=== PATIENT | female | born 1985 | race Caucasian/White ===

== ENCOUNTER 2016-07-28 09:15 | Inpatient (IN) | payer OTHER ==
--- NOTE | ~2016-07-28 | DS ---
Discharge Summary [facility] [address] [place]. [address] NAME: LING DENT : 85 STATUS : DIS IN PAT#: [id number] AGE: 30 ADM/REG DATE : 07/28/16 MR#: [id number] REPORT SERV DATE: 08/12/16 DICTATED BY: DAVID BROWNE DATE: 08/12/16 REPORT STATUS : Draft TRANSCRIBED BY: CHRISTEL DATE: 08/12/16 Data Collection from hospitalization DISCHARGE DIAGNOSES: 1. Perforated ulcer. 2. History of gastric bypass for super morbid obesity. CONSULTATIONS: None. PROCEDURES: 1. Laparoscopic Michele patch, laparoscopic cholecystectomy on 07/28/2016. 2. CT scan of the abdomen and pelvis with contrast on 07/28/2016. 3. Feeding tube placement on 07/29/2016. 4. Water-soluble contrast swallow study on 08/02/2016. PATHOLOGY: Gallbladder cholecystectomy-cholelithiasis, minimal histologic changes, see description. DISCHARGE MEDICATIONS: Prilosec 40 mg daily, Percocet one tablet every four hours as needed. CONDITION AT DISCHARGE: Stable. DISPOSITION: The patient was discharged home on a regular diet with activities as instructed. She would follow up with Dr. David Browne on 08/04/2016. She would follow up with Dr. Vasquez Chen, in three to four weeks following discharge. She would follow up with Dr. Katheryn Hale, on 08/24/2016. HOSPITAL COURSE: This is a 30-year-old female, who has a significant past medical history of gastric bypass in 2015, and marginal ulcers, diagnosed in 2016, with ongoing epigastric indigestion like pain consistent with ulcer disease. Two weeks prior to this admission, she had an endoscopy by Dr. Hale and ulcers were again noted. A staple that was found was removed at that time. The patient had been in her normal state of health and on the morning of this admission, she had the acute onset of abdominal pain. It was sharp, stabbing, and unrelenting nothing made it better. Movement and palpation made it worse. She was brought to the emergency department. She said she had never had anything like this before. Her bowel habits had been normal. She had noticed no bright red blood per rectum. She was admitted to the hospital at this time for further evaluation and treatment. Upon admission, a CT scan showed free air and free fluid in the pelvis. She was felt to have perforated gastric ulcer most likely one of the marginal ulcers, and felt that the patient would need to be taken to the operating room for laparoscopic repair, and possible open repair, and any other indicated procedures. She agreed to proceed and was taken to the operating room where she underwent the above-mentioned procedure. She tolerated this well and there were no complications. On postop day #1, her pain was controlled. She was being held n.p.o. We encouraged her to ambulate. White count 14.4. Nasogastric tube was placed under fluoroscopic guidance on 07/30/2016. She was able to void. Plans were being made for an upper GI to be performed. We encouraged her to use incentive spirometry and mobilize. Pain control had slightly improved. Discharge Summary [place] [id number] [facility] [place]. [address] NAME: ILNG DENT : 85 STATUS : DIS IN PAT#: [id number] AGE: 30 ADM/REG DATE : 07/28/16 MR#: [id number] REPORT SERV DATE: 08/12/16 DICTATED BY: DAVID BROWNE DATE: 08/12/16 REPORT STATUS : Draft TRANSCRIBED BY: CHRISTEL DATE: 08/12/16 On 08/01/2016, she reported that her abdominal pain was controlled and had improved. She said the pain was in the left upper quadrant site. Pain was significantly indurated there. Upper GI was going to be performed. The next day, an upper GI was performed. She had no new complaints. She did have multiple bowel movements after the upper GI. The upper GI showed no extravasation. She was going to be placed on a regular diet. The following day, she was tolerating full liquids. Discharge planning was performed. On 08/03/2016, she was tolerating clear liquids. Her abdomen was soft and nontender. Her IV was discontinued. We advanced her diet. Discharge instructions were given. Due to her improved and stable condition, she was discharged home with the above-stated instructions. Information collected by: Mary Sun I submit the above information as my discharge summary. LINWOOD/CHRISTEL Zahra Browne M.D. / [id number] CC: Carolyn Vegas M.D.
--- NOTE | ~2016-07-28 | OP ---
Record Of [facility] [address] [place]. [address] NAME: LING DENT : 85 STATUS : ADM IN [facility]#: [id number] AGE: 30 ADM/REG DATE : 07/28/16 MR#: [id number] REPORT SERV DATE: 07/30/16 DICTATED BY: DAVID BROWNE DATE: 07/29/16 REPORT STATUS : Draft TRANSCRIBED BY: MODL DATE: 07/29/16 DATE OF PROCEDURE: 07/28/2016 PREOPERATIVE DIAGNOSES: 1. Perforated viscus. 2. Biliary dyskinesia. POSTOPERATIVE DIAGNOSES: 1. Perforated viscus (perforated ulcer at gastrojejunostomy). 2. Biliary dyskinesia. PROCEDURE: 1. Laparoscopic Michele patch. 2. Laparoscopic cholecystectomy. ATTENDING SURGEON: David Browne M.D. RESIDENT: . ANESTHESIA: General. ESTIMATED BLOOD LOSS: 10 mL. IV FLUIDS: 850 mL crystalloid. SPECIMEN: Gallbladder. DRAINS: A 19-round Alexander drain placed infrahepatically under the left and right lobe. COMPLICATIONS: None. FINDINGS: The patient had copious amounts of turbid gastric fluid in the abdominal cavity with a perforation noted at the gastrojejunostomy anastomosis on the jejunal side, it appeared to be. The patient had a very healthy, good tongue of omentum that could be swung up to cover and patch the hole. The gallbladder was grossly distended consistent with biliary dyskinesia. INDICATIONS FOR PROCEDURE: This is a 30-year-old female who has a significant past medical history and surgical history of gastric bypass in 2014, and then noted to have marginal ulcers in 2016 and then just recently 2 weeks ago, has had an endoscopy and was still noted to have 2 ulcers near her gastrojejunostomy, and at that time, per the patient's report, there was a staple that was also visualized poking through that was removed. The patient did have an acute onset of abdominal pain on the morning of 07/28/2016, then developed arya peritonitis. The patient presented to the ER. Workup was consistent with perforated viscus with free air and free fluid in the pelvis. Also of note, the patient has had some considerable issues with oral intake, and a workup had been done as an outpatient for that, Record Of [place] [id number] [place]. [address] NAME: LING DENT : 85 STATUS : ADM IN PAT#: [id number] AGE: 30 ADM/REG DATE : 07/28/16 MR#: [id number] REPORT SERV DATE: 07/30/16 DICTATED BY: DAVID BROWNE DATE: 07/29/16 REPORT STATUS : Draft TRANSCRIBED BY: MODAbeba DATE: 07/29/16 and the patient was noted to have biliary dyskinesia based on HIDA scan with an ejection fraction of 12%. Therefore, the above procedures were offered to the patient. Risks, benefits, and alternatives were explained to the patient. The patient expressed clear verbal understanding and wished to proceed forward with this procedure. DESCRIPTION OF PROCEDURE: After informed consent was obtained, the patient was taken back to the operative theater. The patient was laid on the operating room table in supine position. The patient was given adequate analgesia and anesthesia and successfully endotracheally intubated. The patient was then placed in lithotomy position. Surgery site was then prepped and draped in the standard fashion. A formal time-out was then performed. Appropriate preoperative antibiotics had been administered. All present in the operating room were in agreement and elected to proceed forward with the procedure. We began by making incision through the umbilicus using blunt dissection, engaged the abdominal cavity. A 12 mm trocar was then placed into the abdominal cavity, connected to insufflation. Pneumoperitoneum 50 mmHg was achieved, and the patient tolerated this well. A laparoscope was then introduced into the abdominal cavity. A quick surveillance revealed copious amounts of turbid fluid throughout the abdomen and a grossly distended gallbladder. We then placed three 5 mm trocars, 1 in the mid epigastrium and then 2 in the right upper quadrant. We then also placed another 10 mm trocar in the left upper quadrant. We then suctioned out all the turbid fluid, rotated the patient Trendelenburg, reverse Trendelenburg, left, and right to get as much turbid fluid out as possible. We then thoroughly irrigated out the abdominal cavity until a clear fluid returned. We then turned our attention to where we expected the perforated viscus to be and noted there to be a perforation right at the gastrojejunostomy of the Ricky-en-Y bypass distal, more in the jejunal side, easily able to locate a good healthy tongue of omentum. This was brought up and laid tension-free over the perforation. We then intracorporeally placed three 0 silk sutures on the , placed the tongue of omentum over the hole, and then tied down our sutures to complete our Michele patch and to patch the perforation closed. We then turned our attention to the gallbladder. It was grasped by the fundus, retracted cephalad. We then circumferentially dissected out the cystic duct and cystic artery with a mixture of blunt and electrocautery dissection. Once critical view, the cystic duct, gallbladder, infundibulum junction were visualized as well as the cystic artery with circumferential view was seen around it with the liver plate seen behind it. We then placed two clips on the stay side and 1 clip on the go side on the cystic duct and the cystic artery. We then sharply transected between these clips, then used electrocautery to remove the gallbladder from the liver bed. Gallbladder was grasped with a [id number] clamp and removed through the umbilical trocar site, passed off the surgical field. We then visualized our gallbladder fossa. Hemostasis was achieved. There was no bile leakage noted. We then once again thoroughly irrigated out the abdominal cavity until a clear fluid returned. We then placed a 19-round Alexander drain infrahepatically, laid next to omental Michele patch, coursed the drain infrahepatically so it also would lay next to the gallbladder fossa, and brought out through the most lateral right upper quadrant trocar site. I sutured this in place with 2-0 nylon stitch. We then removed our trocars under direct laparoscopic vision. No bleeding noted from the anterior abdominal wall. With the laparoscope still in place, we used a suture passer with a 0 Vicryl in a simple interrupted fashion to reapproximate the fascia at the 10 mm trocar site in the left upper quadrant. We then removed the laparoscope and adequately desufflated the patient's abdomen through the Record Of Operation [place] [address] [place] [id number] NAME: LING DENT : 85 STATUS : ADM IN PAT#: [id number] AGE: 30 ADM/REG DATE : 07/28/16 MR#: [id number] REPORT SERV DATE: 07/30/16 DICTATED BY: DAVID BROWNE DATE: 07/29/16 REPORT STATUS : Draft TRANSCRIBED BY: CHRISTEL DATE: 07/29/16 final trocar at the umbilical site. Removed this trocar. We then reapproximated the fascia at our umbilical trocar site with 0 Vicryl and a UR-6 in a [id number] fashion. Fascia was reapproximated very well. We then reapproximated our skin incision sites with 4-0 Monocryl in a simple interrupted subcuticular stitch fashion. The skin was reapproximated very well, and hemostasis noted to have been achieved. Sterile dressings were then applied. Sterile drapes were then broken down. The patient was reversed from anesthesia. The patient was successfully extubated in the operating room. The patient was awakened, bowel sounds were stable, and patient was transferred to recovery room in stable condition. LAMBERT/CHRISTEL Zahra Browne M.D. / [id number]
--- NOTE | ~2016-07-28 | HP ---
History And Physical [place] [id number] [facility] [place]. [address] NAME: LING DENT : 85 STATUS : ADM IN [facility]#: [id number] AGE: 30 ADM/REG DATE : 07/28/16 MR#: [id number] REPORT SERV DATE: 07/28/16 DICTATED BY: DAVID BROWNE DATE: 07/28/16 REPORT STATUS : Draft TRANSCRIBED BY: CHRISTEL DATE: 07/28/16 DATE OF ADMISSION: 07/28/2016 CHIEF COMPLAINT: Abdominal pain. HISTORY OF PRESENT ILLNESS: This is a 30-year-old female with significant past medical history of a gastric bypass in 2015 and marginal ulcers diagnosed in 2016 with continued ongoing epigastric indigestion-like pain consistent with ulcer disease, who recently two weeks ago had an endoscopy by Dr. Hale and ulcers were noted again. A staple that was noted was removed at that time. The patient was in normal state of health, and this morning, she had acute onset of abdominal pain that was sharp, stabbing, unrelenting, nothing makes it better, movement and palpation make it worse. The patient was brought to the emergency department. The patient states she has never had anything like this before. Denies any fever, chills, nausea, or vomiting. Her bowel habits have been normal. She has noted no bright red blood per rectum. No melena, no dysuria, no hematuria. REVIEW OF SYSTEMS: 12-system review negative except as mentioned in the HPI. ALLERGIES: NO KNOWN DRUG ALLERGIES. PAST MEDICAL HISTORY: Ulcer disease, remote history of super morbid obesity weighing 317 and now down to 163, and also having a recent diagnosis of biliary dyskinesia based on HIDA scan, 12% ejection fraction. PAST SURGICAL HISTORY: As above. SOCIAL HISTORY: No tobacco, alcohol, or drugs. He is from [place]. FAMILY HISTORY: Noncontributory. MEDICATIONS: Omeprazole 40 mg. PHYSICAL EXAMINATION: VITAL SIGNS: Temperature 98.7, blood pressure 152/83, pulse of 80, respiratory rate 18, O2 saturation 99% on room air. GENERAL: In pain, distress. HEENT: Normocephalic, atraumatic. PERRL. EOMI. Mucous membranes are moist. NECK: No lymphadenopathy. Trachea midline. CARDIOVASCULAR: Regular rate and rhythm. LUNGS: Clear to auscultation bilaterally. ABDOMEN: Rigid, distended, and tender to palpation in four quadrants. Positive peritonitis. Positive rebound. Positive guarding. EXTREMITIES: No clubbing, cyanosis, or edema. 2+ pulses. MUSCULOSKELETAL: Moves all extremities well. NEUROLOGIC: Cranial nerves II through XII are intact. A/O x3. History And Physical [address] [place]. [address] NAME: LING DENT : 85 STATUS : ADM IN PAT#: [id number] AGE: 30 ADM/REG DATE : 07/28/16 MR#: [id number] REPORT SERV DATE: 07/28/16 DICTATED BY: DAVID BROWNE DATE: 07/28/16 REPORT STATUS : Draft TRANSCRIBED BY: CHRISTEL DATE: 07/28/16 LABORATORY DATA: White count 8.5, hematocrit 40.8, platelets 255. Sodium 142, potassium 4.0, chloride 108, bicarb 27, BUN 12, creatinine 0.68, glucose 89. LFTs are normal. IMAGING: CT scan shows free air and free fluid in the pelvis. ASSESSMENT AND PLAN: This is a 30-year-old female with acute onset of abdominal pain, positive peritonitis, free air consistent with perforated gastric ulcer, most likely one of her marginal ulcers. We will take the patient back to the operating room for laparoscopic repair, possible open, and any other indicated procedures. The risks, benefits, and alternatives of the procedure were explained to the patient. Risks include, but not limited to, pain, bleeding, infection, failure of the operation, need for future operations, injury to surrounding structures, recurrent disease, [place], stroke, failure to wean from the ventilator, DVT, PE, and . The patient and family all expressed clear verbal understanding and wished to proceed forward with this emergent procedure. LAMBERT/CHRISTEL Zahra Browne M.D. / [id number] CC: Zahra Browne M.D.
[2016-07-28 10:20] LABS: BASOPHILS 0.1 %; BASOPHILS ABSOLUTE 0.01 10/3/uL (0.0-0.16); EOSINOPHILS 0.6 %; EOSINOPHILS ABSOLUTE 0.05 10/3/uL (0.0-0.53); ER CBC TAT 0 Hrs 09 Mins; HEMATOCRIT 40.8 % (36.0-48.0); HEMOGLOBIN 13.6 g/dL (12.0-16.0); IMMATURE GRANULOCYTES 0.2 %; LYMPHOCYTES 21.1 %; LYMPHOCYTES ABSOLUTE 1.79 10/3/uL (0.67-4.30); MEAN CORPUS HGB CONC 33.3 g/dL (32.0-36.0); MEAN CORPUSCULAR HEMOGLOB 28.4 pg (26.0-34.0); MEAN CORPUSCULAR VOLUME 85.2 fL (80-100); MONOCYTES 3.8 %; MONOCYTES ABSOLUTE 0.32 10/3/uL (0.21-1.20); NEUTROPHILS 74.2 %; PLATELET COUNT 255 10/3/uL (150-400); RED CELL COUNT 4.79 10/6/uL (4.0-5.6); WHITE BLOOD CELLS 8.5 10/3/uL (4.5-10.5)
[2016-07-28 10:22] LABS: IMMATURE GRANULOCYTES ABSOLUTE 0.02 10/3/uL (0.0-0.11); MANUAL DIFF NO %
[2016-07-28 10:40] LABS: A/G RATIO 1.1 (0.7-1.9); ALBUMIN 3.5 G/DL (3.5-5.0); ALKALINE PHOSPHATASE 88 U/L (45-117); BUN (BLOOD UREA NITROGEN) 12 MG/DL (6-23); CHLORIDE, SERUM 108 MMOL/L (96-112); CO2 (CARBON DIOXIDE) 27 MMOL/L (24-34); CREATININE 0.68 MG/DL (0.55-1.02); GFR AFRICAN AMERICAN 136 ML/MIN (>=60); GFR NON AFRICAN AMERICAN 117 ML/MIN (>=60); GLOBULIN 3.1 G/DL (2.5-4.1); GLUCOSE, SERUM 99 MG/DL (60-99); SGOT(AST) 11 U/L (5-40); SGPT(ALT) 13 U/L (5-65); SODIUM, SERUM 142 MMOL/L (135-148); TOTAL BILIRUBIN 0.4 MG/DL (0-1.2); TOTAL PROTEIN 6.6 G/DL (6.0-8.5); TROPONIN I <0.02 NG/ML (<0.05)
[2016-07-28 10:48] LABS: BAND NEUTROPHILS 4 %; EOSINOPHILS 1 %; EOSINOPHILS ABSOLUTE (CALC) 0.09 10/3/uL (0.0-0.53); ER DIFF TAT 0 Hrs 37 Mins; LYMPHOCYTES 16 %; LYMPHOCYTES ABSOLUTE (CALC) 1.36 10/3/uL (0.67-4.30); MONOCYTES 1 %; MONOCYTES ABSOLUTE (CALC) 0.09 10/3/uL (0.21-1.20); NEUTROPHILS ABSOLUTE (CALC) 6.97 10/3/uL (2.02-8.40); SEGMENTED NEUTROPHIL (0) 78 %; TOTAL NUCLEATED CELLS 100
[2016-07-28 10:49] LABS: PLATELET ESTIMATE ADQ (ADEQUATE)
[2016-07-28 10:50] LABS: RBC MORPHOLOGY NORM (NORMAL)
[2016-07-28] MEDS ORDERED: PRILOSEC40 MG PO (19:56)
[2016-07-29 05:30] LABS: BASOPHILS 0 %; BUN (BLOOD UREA NITROGEN) 7 MG/DL (6-23); CALCIUM, SERUM 8.4 MG/DL (8.5-10.4); CHLORIDE, SERUM 108 MMOL/L (96-112); CO2 (CARBON DIOXIDE) 24 MMOL/L (24-34); CREATININE 0.74 MG/DL (0.55-1.02); EOSINOPHILS 0 %; GFR AFRICAN AMERICAN 126 ML/MIN (>=60); GFR NON AFRICAN AMERICAN 109 ML/MIN (>=60); GLUCOSE, SERUM 165 MG/DL (60-99); HEMOGLOBIN 11.5 g/dL (12.0-16.0); IMMATURE GRANULOCYTES 0.2 %; IMMATURE GRANULOCYTES ABSOLUTE 0.03 10/3/uL (0.0-0.11); LYMPHOCYTES 6.5 %; LYMPHOCYTES ABSOLUTE 0.94 10/3/uL (0.67-4.30); MEAN CORPUS HGB CONC 32.6 g/dL (32.0-36.0); MEAN CORPUSCULAR HEMOGLOB 27.7 pg (26.0-34.0); MEAN CORPUSCULAR VOLUME 85.1 fL (80-100); MEAN PLATELET VOLUME 11.6 fL (9.2-13.0); MONOCYTES 6.5 %; MONOCYTES ABSOLUTE 0.93 10/3/uL (0.21-1.20); NEUTROPHILS 86.8 %; PLATELET COUNT 228 10/3/uL (150-400); POTASSIUM, SERUM 4.2 MMOL/L (3.5-5.3); RBC DISTRIBUTION WIDTH 13.2 % (12.0-16.0); RED CELL COUNT 4.15 10/6/uL (4.0-5.6); SODIUM, SERUM 140 MMOL/L (135-148)
[2016-07-29 05:32] LABS: HEMATOCRIT 35.3 % (36.0-48.0); MANUAL DIFF NO %; WHITE BLOOD CELLS 14.4 10/3/uL (4.5-10.5)
[2016-08-01 06:22] LABS: BASOPHILS 0.2 %; BASOPHILS ABSOLUTE 0.01 10/3/uL (0.0-0.16); EOSINOPHILS 2.1 %; EOSINOPHILS ABSOLUTE 0.13 10/3/uL (0.0-0.53); HEMOGLOBIN 9.9 g/dL (12.0-16.0); IMMATURE GRANULOCYTES 0.3 %; IMMATURE GRANULOCYTES ABSOLUTE 0.02 10/3/uL (0.0-0.11); LYMPHOCYTES 26.8 %; LYMPHOCYTES ABSOLUTE 1.64 10/3/uL (0.67-4.30); MEAN CORPUSCULAR HEMOGLOB 28.9 pg (26.0-34.0); MEAN CORPUSCULAR VOLUME 87.5 fL (80-100); MEAN PLATELET VOLUME 10.8 fL (9.2-13.0); MONOCYTES 8.8 %; MONOCYTES ABSOLUTE 0.54 10/3/uL (0.21-1.20); NEUTROPHILS 61.8 %; NEUTROPHILS ABSOLUTE 3.77 10/3/uL (2.02-8.40); PLATELET COUNT 215 10/3/uL (150-400); RED CELL COUNT 3.43 10/6/uL (4.0-5.6); WHITE BLOOD CELLS 6.1 10/3/uL (4.5-10.5)
[2016-08-01 06:23] LABS: MANUAL DIFF NO %
[2016-08-01 06:36] LABS: BUN (BLOOD UREA NITROGEN) 1 MG/DL (6-23); CALCIUM, SERUM 8.6 MG/DL (8.5-10.4); CHLORIDE, SERUM 107 MMOL/L (96-112); CO2 (CARBON DIOXIDE) 31 MMOL/L (24-34); CREATININE 0.53 MG/DL (0.55-1.02); GFR AFRICAN AMERICAN 148 ML/MIN (>=60); GFR NON AFRICAN AMERICAN 127 ML/MIN (>=60); GLUCOSE, SERUM 101 MG/DL (60-99); POTASSIUM, SERUM 3.7 MMOL/L (3.5-5.3); SODIUM, SERUM 142 MMOL/L (135-148)
[2016-08-01 15:16] LABS: ASCORBIC ACID (UR NOT ORDER) NEG (NEG); BILIRUBIN, URINE NEGATIVE (NEG); KETONE, URINE TRACE MG/DL (NEG); LEUKOCYTE ESTERASE(NOT OR NEG (NEG); WBC (NOT ORDERED) (RFLEX) 1 (0-5)
[2016-08-03] MEDS ORDERED: PCET PO (15:23)
== END 2016-08-03 17:03 | disposition home or self-care (01) | DRG 326 ==
LOC: ER 09:15 → SDC/OF 15:48 → 5SO 19:14 → SDC/OF 08-01 07:16 → 5SO 08-01 07:17
PROVIDERS: Colon & Rectal Surgery; Emergency Medicine; Specialist
PROC: 0FT44ZZ Resection of Gallbladder, Percutaneous Endoscopic Approach (ICD-10-PCS; principal; 2016-07-28 14:15)
PROC: 0DU Gastrointestinal System, Supplement (ICD-10-PCS; 2016-07-28 14:15)
DX: K91.89 Other postprocedural complications and disorders of digestive system (principal); K28.5 Chronic or unspecified gastrojejunal ulcer with perforation; K65.9 Peritonitis, unspecified; Z98.84 Bariatric surgery status
CPT/HCPCS: 43752; 74000; 74177; 74220; 80048; 80053; 81001; 83690; 84484; 84703; 85025; 88304; 93005; 96365; 96375; 96376; 99284; A9270-GY; C9113; J0330; J1170; J2250; J2270; J2370; J2405; J2543; J2710; J3010; Q9967